=== PATIENT | male | born 2000 | race Caucasian/White ===

== ENCOUNTER 2019-04-15 00:49 | Observation (INO) | payer SELFPAY ==
[2019-04-15] MEDS ORDERED: Fentanyl 100 MCG/2 ML VIAL ONE ×4 (01:29→18:32)
[2019-04-15] MEDS ORDERED: Promethazine HCl 25 MG/ML VIAL IM PRN ×2 (02:24→18:08)
[2019-04-15] MEDS ORDERED: hydrALAZINE 20 MG/ML VIAL SLOW IVP PRN (02:24)
[2019-04-15] MEDS ORDERED: Dextrose 50% Abboject 50 ML SYRINGE SLOW IVP PRN (02:24)
[2019-04-15] MEDS ORDERED: Ondansetron PF 4 MG/2 ML Vial IVP PRN (02:24)
[2019-04-15] MEDS ORDERED: Morphine 2 MG/ML SYRINGE SLOW IVP PRN (02:24)
[2019-04-15] MEDS ORDERED: Dextrose 5% in Water 1,000 ML IV PRN (02:24)
[2019-04-15] MEDS ORDERED: traMADol HCl 50 MG TAB PO PRN ×2 (02:28)
[2019-04-15] MEDS ORDERED: Ondansetron ODT 4 MG TAB SL PRN (04:54)
[2019-04-15 05:06] VITALS: BMI 18.2
[2019-04-15] MEDS: Sodium Chloride 0.9% 1,000 ML IV SCH ×3 (05:21→21:29)
[2019-04-15] MEDS: Acetaminophen 500 MG TAB PO SCH ×3 (05:21→21:25)
[2019-04-15] MEDS: Ibuprofen 800 MG TAB PO SCH ×3 (05:22→21:27)
[2019-04-15 08:04] LABS: #Eosinphils 0.1 thou/uL (0.0-0.7); #Lymphocytes 1.5 thou/uL (1.20-3.40); #Monocytes 0.7 thou/uL (0.11-0.59); #Neutrophils 7.2 thou/uL (1.40-6.50); %Basophils 0.2 % (0.0-1.0); %Eosinophils 0.9 % (0.0-10.0); %Lymphocytes 15.4 % (21.0-51.0); %Monocytes 7.8 % (0.0-10.0); %Neutrophils 75.8 % (42.0-75.0); Hemoglobin 14.4 g/dL (14.0-18.0); Mean Corpuscular HGB CONC 35.7 g/dL (32.0-36.0); Mean Corpuscular Hemoglobin 31.9 pg (27.0-31.0); Mean Corpuscular Volume 89.5 fL (78.0-98.0); Mean Platelet Volume 8.3 fL (7.4-10.4); Platelet Count 185 thou/uL (130-400); RBC Distribution Width 11.4 % (11.5-14.5); White Blood Cell (WBC) Count 9.5 thou/uL (4.8-10.8)
[2019-04-15 08:22] LABS: Anion Gap 10 mmol/L (10-20); BUN (Urea Nitrogen) 12 mg/dL (8.9-20.6); Calc. Creatinine Clearance 100 mL/min (70-130); Calcium 9.2 mg/dL (7.8-10.44); Carbon Dioxide 25 mmol/L (22-29); Chloride 107 mmol/L (98-107); Estimated GFR-MDRD Greater than 90; Glucose 97 mg/dL (70-105); Magnesium 1.9 mg/dL (1.6-2.6); Phosphorus 4.2 mg/dL (2.3-4.7); Potassium 4.7 mmol/L (3.5-5.1); Sodium 137 mmol/L (136-145)
[2019-04-15] MEDS: Famotidine 20 MG TAB PO SCH ×2 (08:50→21:26)
[2019-04-15] MEDS: Polyethylene Glycol 3350 17 GM Packet PO SCH (08:51)
[2019-04-15] MEDS: Senokot S 8.6-50 MG TAB PO SCH ×2 (08:51→21:26)
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
[2019-04-15] MEDS ORDERED: CEFAZOLIN 2 GM in Premix Bag 1 BAG IVPB SCH (16:00)
[2019-04-15] MEDS ORDERED: Midazolam HCl 2 mg/2 ml Vial ONE (16:46)
[2019-04-15] MEDS ORDERED: Promethazine HCl 25 MG/ML VIAL SLOW IVP PRN (18:08)
[2019-04-15] MEDS ORDERED: Ondansetron HCl/PF 4 MG/2 ML Vial IVP PRN (18:08)
[2019-04-15] MEDS ORDERED: HYDROmorphone 2 MG/ML VIAL SLOW IVP PRN (18:08)
[2019-04-15] MEDS: CEFAZOLIN 2 GM in Premix Bag 1 BAG IVPB SCH (21:26)
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
[2019-04-16] MEDS: Acetaminophen 500 MG TAB PO SCH ×3 (03:21→08:27)
[2019-04-16] MEDS: Sodium Chloride 0.9% 1,000 ML IV SCH (04:50)
[2019-04-16] MEDS: CEFAZOLIN 2 GM in Premix Bag 1 BAG IVPB SCH (05:51)
[2019-04-16] MEDS: Ibuprofen 800 MG TAB PO SCH (05:51)
[2019-04-16 06:00] LABS: #Monocytes 0.5 thou/uL (0.11-0.59); #Neutrophils 5.8 thou/uL (1.40-6.50); %Basophils 0.1 % (0.0-1.0); %Eosinophils 0.1 % (0.0-10.0); %Lymphocytes 13.3 % (21.0-51.0); %Monocytes 7.3 % (0.0-10.0); %Neutrophils 79.2 % (42.0-75.0); Hemoglobin 13.2 g/dL (14.0-18.0); Mean Corpuscular HGB CONC 34.7 g/dL (32.0-36.0); Mean Corpuscular Hemoglobin 31.3 pg (27.0-31.0); Mean Corpuscular Volume 90.3 fL (78.0-98.0); Mean Platelet Volume 8.4 fL (7.4-10.4); Platelet Count 183 thou/uL (130-400); RBC Distribution Width 11.3 % (11.5-14.5); Red Blood Cell (RBC) Count 4.22 mill/uL (4.70-6.10); White Blood Cell (WBC) Count 7.4 thou/uL (4.8-10.8)
[2019-04-16 06:20] LABS: Anion Gap 9 mmol/L (10-20); BUN (Urea Nitrogen) 11 mg/dL (8.9-20.6); Calc. Creatinine Clearance 110 mL/min (70-130); Calcium 8.7 mg/dL (7.8-10.44); Carbon Dioxide 24 mmol/L (22-29); Chloride 108 mmol/L (98-107); Estimated GFR-MDRD Greater than 90; Glucose 136 mg/dL (70-105); Magnesium 1.9 mg/dL (1.6-2.6); Phosphorus 3.5 mg/dL (2.3-4.7); Potassium 4.3 mmol/L (3.5-5.1); Sodium 137 mmol/L (136-145)
[2019-04-16] MEDS: Polyethylene Glycol 3350 17 GM Packet PO SCH (08:26)
[2019-04-16] MEDS: Senokot S 8.6-50 MG TAB PO SCH (08:27)
[2019-04-16] MEDS: Famotidine 20 MG TAB PO SCH (08:27)
[2019-04-16 11:31] VITALS: BP 112/54; TEMP 97.4
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
== END 2019-04-16 13:30 | disposition home or self-care (01) ==
LOC: ERS 00:49 → SURG A 01:50
PROVIDERS: ADMIT Specialist; ATTEND Specialist
PROC: 0SJD0ZZ Inspection of Left Knee Joint, Open Approach (ICD-10-PCS; principal; 2019-04-15)
DX: S72.432A Displaced fracture of medial condyle of left femur, initial encounter for closed fracture (principal); S82.142A Displaced bicondylar fracture of left tibia, initial encounter for closed fracture; G89.11 Acute pain due to trauma; F17.290 Nicotine dependence, other tobacco product, uncomplicated; Z88.2 Allergy status to sulfonamides; W32.0XXA Accidental handgun discharge, initial encounter
CPT/HCPCS: 36415; 80048; 83735; 84100; 85025; 96361; 96365; 96366; 96374; 96375; G0378; J0690; J2250; J3010